=== PATIENT | male | born 1950 | race Asian ===

== ENCOUNTER → 2023-06-15 10:45 | Outpatient (REF) | payer OTHER, MEDICARE, SELFPAY ==
--- NOTE | 2023-06-15 10:54 | CA_ITS ---
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 There is mildly increased left ventricular wall thickness. The visually estimated ejection fraction is between 55-60%. There is no evidence of regional wall motion abnormalities. Diastolic function is normal for age. - Mildly increased right ventricular cavity size. There is normal right ventricular systolic function. Findings Left Ventricle Normal left ventricular size and systolic function. There is mildly increased left ventricular wall thickness. The visually estimated ejection fraction is between 55-60%. There is no evidence of regional wall motion abnormalities. Diastolic function is normal for age. Right Ventricle Mildly increased right ventricular cavity size. There is normal right ventricular systolic function. Atria The left atrium is normal in size. The right atrium is normal in size. Aortic Valve Normal aortic valve structure and function. There is no aortic valve stenosis. There is no aortic valve regurgitation. Mitral Valve The mitral valve appears normal. There is no mitral valve regurgitation. There is no mitral valve stenosis. Pulmonic Valve The pulmonic valve is likely normal. Tricuspid Valve Normal tricuspid valve structure and function. There is no tricuspid valve regurgitation. Tricuspid regurgitation envelope is inadequate for calculation of right ventricular systolic pressure. Normal right atrial pressure. Venous The inferior vena cava is normal in size and collapses greater than 50% with inspiration. Pericardium/Pleural There is no evidence of pericardial effusion. Prior Study Comparison No prior study available for comparison. Measurements 2D Linear Measurements IVSd: 1.10 0.6-0.9/0.6-1.0 cm LVIDd: 4.10 3.9-5.3/4.2-5.9 cm LVIDd Index: 2.10 2.4-3.2/2.2-3.1 cm/m2 LVIDs: 2.70 2.0-3.6 cm LVPWd: 1.10 0.7-1.1 cm LA Diam: 3.50 2.7-3.8/3.0-4.0 cm LAIDs Index: 1.79 1.5-2.3 cm/m2 LV Mass: 188.37 67-162/88-224 g LV Mass Index: 96.60 43-95/49-115 g/m2 LVOT Diam: 2.40 3.0+(-)1.3 cm 2D Systolic Function EF 4C: 62.70 >55% EF 2C: 67.20 >55% EF BiP: 64.50 >55% Mitral Valve MV Pk E: 0.73 MV PK A: 0.86 MV Decel Time: 220.00 E/A: 0.90 E'Lateral: 9.36 E'Medial: 8.59 E/E' Med: 8.50 E/E' Lat: 7.80 PHT: 64.00 MVA PHT: 3.44 Decel [place]: 3.33 Aortic Valve AoV Pk Jaya: 1.10 AoV Mn Jaya: 0.85 AoV VTI: 0.26 AoV Pk Grad: 5.00 Aov Mn Grad: 3.00 VAIBHAV Cont.VTI: 3.28 LVOT LVOT Pk Jaya: 0.90 LVOT Mn Jaya: 0.55 LVOT VTI: 0.19 LVOT Pk Grad: 3.00 LVOT Mn Grad: 1.00 LVOT Diam: 2.40 LVOT Area: 4.52 Diastolic Function MV Pk E: 0.73 MV Pk A: 0.86 E/A: 0.90 E'Medial: 8.59 E/E' Med: 8.50 E' Laterial: 9.36 E/E' Lat: 7.80 Right Ventricle TAPSE (mm): 21.90 TVS' Jaya: 12.50 Tricuspid Valve RA Press: 3.00 Great Vessels Aorta Sinus of Valsalva: 3.80 2.0-3.5 cm Ao Asc: 3.70 2.1-3.4 cm Pulmonary Valve PV Pk Jaya: 0.83 Peak PV Grad: 3.00 Updated in Other Vendor System with Status of Final Hamzah Childs MD electronically signed on 06/17/2023 3:13:47 PM with status of Final
== END ==
LOC: HO.CARD 10:45
PROVIDERS: Visit Provider Psychiatry & Neurology Neurology
DX: G71.02 Facioscapulohumeral muscular dystrophy (principal)
CPT/HCPCS: 93306

== ENCOUNTER → 2023-06-15 10:54 | Outpatient (BNV) | payer OTHER, MEDICARE, SELFPAY | PROVIDERS: Visit Provider Internal Medicine Cardiovascular Disease | DX: R00.1 Bradycardia, unspecified (principal); G71.02 Facioscapulohumeral muscular dystrophy | CPT/HCPCS: 93306 ==